=== PATIENT | female | born 2005 | race Caucasian/White ===

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

== ENCOUNTER 2023-06-10 22:14 | Emergency (ER) | payer MEDICAID ==
[~2023-06-10] VITALS: Ht 160 cm; Wt 54.4 kg
[~2023-06-10 22:14] MED LIST: NAPR-688 PO
[2023-06-10 22:49] VITALS: BP_SYST 128; PULSE 69; RESP 17; TEMP 98.1; O2SAT 99
== END 2023-06-11 | disposition left against medical advice (07) ==
LOC: SED 22:14
DX: O20.9 Hemorrhage in early pregnancy, unspecified (principal); Z3A.01 Less than 8 weeks gestation of pregnancy; Z53.21 Procedure and treatment not carried out due to patient leaving prior to being seen by health care provider
CPT/HCPCS: 99281